=== PATIENT | female | born 2005 | race Caucasian/White ===

== ENCOUNTER 2025-04-04 17:22 | Emergency (ER) | payer MEDICAID, SELFPAY ==
[2025-04-04 17:23] VITALS: BP 119/81; PULSE 80; RESP 16; TEMP 36.6; O2SAT 99; BMI 22.8
== END 2025-04-04 18:00 | disposition left against medical advice (07) ==
LOC: ED 19:01
DX: Z00.00 Encounter for general adult medical examination without abnormal findings (principal)